=== PATIENT | female | born 1970 | race Caucasian/White ===

== ENCOUNTER 2016-11-06 03:20 | Emergency (ER) | payer MEDICARE ==
[2016-11-06] MEDS ORDERED: cloNIDine 0.1 MG Tab PO ONE (03:47)
[2016-11-06] MEDS ORDERED: GI Cocktail Oral Solution 30 ML PO ONE (03:49)
[2016-11-06] MEDS ORDERED: Ondansetron 4 MG/2 ML SDV IV ONE (03:50)
[2016-11-06] MEDS ORDERED: Famotidine 20 MG/2 ML SDV IVPUSH ONE (03:51)
[2016-11-06 04:04] VITALS: BP 153/105
--- NOTE | 2016-11-06 04:04 | EDM.PDOC ---
ED HISTORY OF PRESENT ILLNESS - General Chief Complaint: Respiratory Problem Stated Complaint: sob Time Seen by Provider: 11/06/16 03:30 Source of Information: Reports: Patient History Limitations: Reports: No limitations - History of Present Illness INITIAL COMMENTS - FREE TEXT/NARRATIVE: c/o epigastric pain burning intermittent nausea, dry heaves. No chest pain. Anxious SOB at times. Had been on Diazepam 10mg three times daily and MS contin 30mg three times daily for years for back pain and anxiety until 10/24 when quit taking them because told her they would "kill her". Smoker, Admits ETOH at least 3 whisky cokes daily. Hx ulcers in past feels similar, Stools yellow, Ate spaghetti tonight for supper Timing/Duration: Reports: Day(s): - Related Data Allergies/ADRs: Allergies Allergy/AdvReac Type Severity Reaction Status Date / Time acetaminophen Allergy Cannot Verified 02/14/16 22:22 [From Darvocet-N] Remember bupropion Allergy Cannot Verified 02/14/16 22:22 Remember fentanyl Allergy Lethargy Verified 11/06/16 03:28 lactose Allergy Cannot Verified 02/14/16 22:22 Remember morphine Allergy Cannot Verified 02/14/16 22:22 Remember peanut Allergy Cannot Verified 02/14/16 22:22 Remember propoxyphene napsylate Allergy Cannot Verified 02/14/16 22:22 [From Darvocet-N] Remember shellfish derived Allergy Cannot Verified 02/14/16 22:22 Remember enviromental Allergy Cannot Uncoded 02/14/16 22:22 Remember Home Meds: Home Meds . [No Known Home Meds] 02/14/16 [History] Past Medical History HEENT History: Reports: None Cardiovascular History: Reports: None Respiratory History: Reports: None Gastrointestinal History: Reports: None Genitourinary History: Reports: None [employer] History: Reports: None Other Musculoskeletal History: 4 neck surgeries, hand surgery Neurological History: Reports: None Psychiatric History: Reports: Anxiety Endocrine/Metabolic History: Reports: None Hematologic History: Reports: None Immunologic History: Reports: None Oncologic (Cancer) History: Reports: None Dermatologic History: Reports: None Social & Family History - Family History Family Medical History: Noncontributory - Tobacco Use Smoking Status *Q: Current Every Day Smoker Years of Tobacco use: 15 Packs/Tins Daily: 0.3 - Caffeine Use Caffeine Use: Reports: None - Alcohol Use Days Per Week of Alcohol Use: 4 Number of Drinks Per Day: 3 Total Drinks Per Week: 12 Date of Last Drink: 11/05/16 Time of Last Drink: 20:00 - Recreational Drug Use Recreational Drug Use: No ED ROS GENERAL - Review of Systems Review Of Systems: See Below Constitutional: Reports: decreased appetite HEENT: Reports: Sinus problem (allergies) Respiratory: Reports: shortness of breath Cardiovascular: Reports: No symptoms GI/Abdominal: Reports: Abdominal pain, Decreased appetite, Nausea : Reports: no symptoms Musculoskeletal: Reports: neck pain Skin: Reports: no symptoms Psychiatric: Reports: Anxiety ED EXAM, GENERAL - Physical Exam Exam: See Below Exam Limited By: Language barrier General Appearance: alert, anxious, other (odor ETOH) Eye Exam: bilateral eye: EOMI Ears: normal external exam Ear Exam: bilateral ear: TM normal Nose: normal inspection Throat/Mouth: Normal inspection Head: atraumatic, normocephalic Neck: normal inspection Respiratory/Chest: no respiratory distress, lungs clear, normal breath sounds Cardiovascular: normal peripheral pulses, regular rate, rhythm, tachycardia GI/Abdominal: tender (epigastric), abnormal bowel sounds: (hyperactive). No: distended, guarding Back Exam: normal inspection Extremities: normal inspection Neurological: alert, oriented Psychiatric: anxious Skin Exam: Warm, Dry, Intact Course - Vital Signs Last Recorded V/S: Last Vital Signs Temp 97 F 11/06/16 03:23 Pulse 120 H 11/06/16 03:23 Resp 18 11/06/16 03:23 BP 153/105 H 11/06/16 04:02 Pulse Ox 99 11/06/16 03:23 - Orders/Labs/Meds Labs: Laboratory Tests 11/06/16 11/06/16 Range/Units 04:00 04:00 WBC 9.4 (5.0-10.0) 10^3/uL RBC 4.53 (4.2-5.4) 10^6/uL Hgb 16.0 (12.0-16.0) g/dL Hct 46.5 (37.0-47.0) % MCV 102.6 H (80-100) fL MCH 35.3 H (27.0-34.0) pg MCHC 34.4 (33.0-35.0) g/dL Plt Count 248 (150-450) 10^3/uL Neut % (Auto) 64.6 (42.2-75.2) % Lymph % (Auto) 26.7 (20.5-50.1) % Bureau % (Auto) 7.1 (2-8) % Eos % (Auto) 1.2 (1.0-3.0) % Baso % (Auto) 0.4 (0.0-1.0) % Sodium 139 (135-145) mmol/L Potassium 3.5 L (3.6-5.0) mmol/L Chloride 101 (101-111) mmol/L Carbon Dioxide 27.0 (21.0-31.0) mmol/L Anion Gap 14.5 BUN 5 L (7-18) mg/dL Creatinine 0.6 (0.6-1.3) mg/dL Est Cr Clr Drug Dosing 125.04 mL/min Estimated GFR (MDRD) > 60 BUN/Creatinine Ratio 8.33 Glucose 96 (74-105) mg/dL Calcium 9.8 (8.4-10.2) mg/dl Total Bilirubin 0.5 (0.2-1.0) mg/dL AST 21 (10-42) IU/L ALT 24 (10-60) IU/L Alkaline Phosphatase 42 (42-121) IU/L Total Protein 7.8 (6.7-8.2) g/dl Albumin 4.3 (3.2-5.5) g/dl Globulin 3.5 Albumin/Globulin Ratio 1.23 Amylase 71 (28-100) U/L Lipase 39 (22-51) U/L Ethyl Alcohol 37 mg/dL Meds: Medications Discontinued Medications Generic Name Dose Route Start Last Admin Trade Name Freq PRN Reason Stop Dose Admin Al Hydroxide/Mg Hydroxide 30 ml 11/06/16 03:49 Gi Cocktail PO 11/06/16 03:50 ONETIME ONE Clonidine HCl 0.1 mg 11/06/16 03:47 11/06/16 04:02 Catapres PO 11/06/16 03:48 0.1 mg ONETIME ONE Administration Famotidine 20 mg 11/06/16 03:51 11/06/16 04:02 Pepcid IVPUSH 11/06/16 03:52 20 mg ONETIME ONE Administration Ondansetron HCl 4 mg 11/06/16 03:50 11/06/16 04:02 Zofran IV 11/06/16 03:51 4 mg ONETIME ONE Administration - Re-Assessments/Exams Free Text/Narrative Re-Assessment/Exam: Discussed withdrawal symptoms with patient including risk with rapid withdrawal from diazepam. Patient needs to establish primary care and follow up with mental health. Contact current provider this am to notify of discontinuation of medications. Anxiety imporved at timed of discharge, epigastric burning and nausea resloved. Departure - Departure Time of Disposition: 04:50 Disposition: Home, Self-Care 01 Condition: good Clinical Impression: Withdrawal from opioids, Peptic ulcer Withdrawal from benzodiazepine Qualifiers: Complication of substance-induced condition: with unspecified complication Qualified Code(s): F13.239 - Sedative, hypnotic or anxiolytic dependence with withdrawal, unspecified Instructions: Opioid Withdrawal Forms: ED Department Discharge Additional Instructions: Contact primary care provider this morning to discuss medication discontinuation omeprazole 20mg one daily bland diet
[2016-11-06 04:27] LABS: CHLORIDE,CL 101 mmol/L (101-111); SODIUM,NA 139 mmol/L (135-145)
== END 2016-11-06 04:58 | disposition home or self-care (01) ==
LOC: DL.ED 03:20
DX: F11.23 Opioid dependence with withdrawal (principal); Z72.89 Other problems related to lifestyle; T40.2X5A Adverse effect of other opioids, initial encounter; F17.200 Nicotine dependence, unspecified, uncomplicated; R10.13 Epigastric pain; F41.9 Anxiety disorder, unspecified; Z98.890 Other specified postprocedural states; Z88.8 Allergy status to other drugs, medicaments and biological substances; Z88.1 Allergy status to other antibiotic agents; Z91.013 Allergy to seafood
CPT/HCPCS: 36415; 80053; 82150; 83690; 85025; 96374; 96375; 99284; A9270; G0480; J2405; S0028